=== PATIENT | female | born 1980 | race Caucasian/White ===

== ENCOUNTER 2017-01-03 08:41 | Outpatient (CLI) | payer BC, OTHER ==
[~2017-01-03] VITALS: Ht 162.6 cm; Wt 68.5 kg
[~2017-01-03 08:41] MED LIST: ACHD5005 PO; CHOL100045 PO; IBP600T1 PO; LEVO75TA6 PO; PREN1TAB14 PO
[2017-01-03 08:48] VITALS: BP 126/89
[2017-01-03] MEDS ORDERED: LEVO88TA54 PO (08:54)
[2017-01-03 09:18] LABS: BASOPHILS % (AUTO) 0 % (0-10); EOSINOPHILS % (AUTO) 0 % (0-10); LYMPHOCYTES # (AUTO) 1.9 X 10^3 (1.0-4.0); LYMPHOCYTES % (AUTO) 28 % (12-44); MEAN CORPUSCULAR HEMOGLOBIN 31 PG (25-34); MEAN CORPUSCULAR HGB CONC 34 G/DL (32-36); MEAN CORPUSCULAR VOLUME 93 FL (80-99); MEAN PLATELET VOLUME 9.6 FL (7.4-10.4); MONOCYTES # (AUTO) 0.3 X 10^3 (0.0-1.0); MONOCYTES % (AUTO) 5 % (0-12); NEUTROPHILS # (AUTO) 4.6 X 10^3 (1.8-7.8); NEUTROPHILS % (AUTO) 67 % (42-75); PLATELET COUNT 306 10^3/uL (130-400); RED BLOOD COUNT 4.13 10^6/uL (4.35-5.85); RED CELL DISTRIBUTION WIDTH 12.7 % (10.0-14.5); WHITE BLOOD COUNT 6.9 10^3/uL (4.3-11.0)
[2017-01-10] MEDS ORDERED: IBUP-1773 PO (16:15)
[2017-01-10] MEDS ORDERED: ESTR1PAT10 TD (16:15)
[2017-01-10] MEDS ORDERED: HYDR-3816 PO (16:15)
== END 2017-01-03 09:08 | disposition home or self-care (01) ==
LOC: PREOP 08:41
PROVIDERS: ATTEND Obstetrics & Gynecology
DX: Z01.812 Encounter for preprocedural laboratory examination (principal); Z11.2 Encounter for screening for other bacterial diseases; N81.4 Uterovaginal prolapse, unspecified
CPT/HCPCS: 36415; 85025; 86850; 86900; 86901; 87081